=== PATIENT | male | born 1995 | race Hispanic/Latino ===

== ENCOUNTER 2017-07-10 04:47 | Emergency (ER) | payer BC ==
[~2017-07-10] VITALS: Ht 170.2 cm; Wt 86.2 kg
[2017-07-10] MEDS ORDERED: TETANUS/DIPHTHERIA TOX ADULT 0.5 ML SYR IM ONE (05:45)
[2017-07-10 05:50] VITALS: BP 126/84
== END 2017-07-10 05:15 | disposition home or self-care (01) ==
LOC: FSED 04:47
PROC: 0HQ0XZZ Repair Scalp Skin, External Approach (ICD-10-PCS; principal; 2017-07-10)
DX: S01.01XA Laceration without foreign body of scalp, initial encounter (principal); Y04.0XXA Assault by unarmed brawl or fight, initial encounter; F17.210 Nicotine dependence, cigarettes, uncomplicated
CPT/HCPCS: 90471; 90714; 99282

== ENCOUNTER → 2017-07-10 | Emergency (ER) | payer SELFPAY | END | disposition left against medical advice (07) | LOC: FSED 03:05 | DX: S01.01XA Laceration without foreign body of scalp, initial encounter (principal); Y04.0XXA Assault by unarmed brawl or fight, initial encounter; F17.210 Nicotine dependence, cigarettes, uncomplicated ==